=== PATIENT | female | born 1990 | race Two or more races ===

== ENCOUNTER 2021-01-16 20:37 | Inpatient (IN) | payer OTHER ==
[~2021-01-16] VITALS: Ht 170.2 cm; Wt 100.7 kg
[2021-01-16] MEDS ORDERED: PNV 29-1 TABLE1 EACH PO (21:23)
[2021-01-18] MEDS ORDERED: Procardia Xl 30MG TA PO (08:17)
== END 2021-01-18 11:51 | disposition home or self-care (01) | DRG 833 ==
LOC: OBS/DEL 20:37 → OB/GYN 21:14 → LDR 21:14 → OB/GYN 01-17 17:37
PROVIDERS: ADMIT Obstetrics & Gynecology; ATTEND Obstetrics & Gynecology
PROC: 4A1HXFZ Monitoring of Products of Conception, Cardiac Rhythm, External Approach (ICD-10-PCS; principal; 2021-01-16)
PROC: BY4FZZZ Ultrasonography of Third Trimester, Single Fetus (ICD-10-PCS; 2021-01-16)
DX: O60.03 Preterm labor without delivery, third trimester (principal); Z3A.35 35 weeks gestation of pregnancy; Z20.822 Contact with and (suspected) exposure to COVID-19